=== PATIENT | female | born 1985 | race Caucasian/White ===

== ENCOUNTER 2023-06-28 16:58 | Emergency (ER) | payer BC, SELFPAY ==
[2023-06-28 17:09] VITALS: BP 128/68; PULSE 108; RESP 16; TEMP 37.1; O2SAT 100
--- NOTE | 2023-06-28 17:42 | ED.URI ---
HPI - URI/Sore Throat General Chief Complaint: Upper Respiratory Infection Stated Complaint: Sinus Pressure, Contractions Source: patient and RN notes reviewed Mode of arrival: ambulatory Limitations: no limitations History of Present Illness HPI Narrative: 38-year-old female presented for complaint sinus congestion and headache since yesterday. Endorses children with similar symptoms. Unable to take anything for symptoms due to . She also reports she has had intermittent contractions. Also states she feels they are [place] contractions and is not concerned. She denies vaginal bleeding. Reports normal movement. MD elicited complaint: cough Related Data Home Medications Medication Instructions Recorded Confirmed No Home Medications 06/28/23 06/28/23 Allergies Allergy/AdvReac Type Severity Reaction Status Date / Time No Known Allergies Allergy Verified 06/28/23 17:40 Review of Systems Review of Systems: CONSTITUTIONAL: Endorses malaise, chills, sweats, fever EYES: Denies visual changes, redness, or discharge ENT: Reports rhinorrhea, congestion, denies otalgia, sore throat CARDIOVASCULAR: Denies chest pain, palpitations, edema RESPIRATORY: Reports cough, post nasal drainage. Denies dyspnea GASTROINTESTINAL: Reports contractions Denies abdominal pain, nausea, vomiting, diarrhea MUSCULOSKELETAL: denies myalgia NEUROLOGIC: reports headache Exam Narrative: GENERAL: well-appearing, nontoxic no acute distress. EYES: PERRLA, conjunctivae clear ENT: Mucous membranes moist. TM pearly villanueva with dull light reflex bilaterally; no tragal tenderness. Oropharynx erythematous without lesions or exudate, no drooling, no hoarseness, no trismus, uvula midline. No tripod positioning, muffled voice, soft palate or pharyngeal wall bulging CHEST: Clear to auscultation, breath sounds equal. No wheezing, rhonchi, rales, or stridor. No respiratory distress, speaks in full sentences. HEART: Regular rate and rhythm. No murmur heard. ABD: gravid SKIN: Warm, dry, no rash. NEURO: Alert and oriented x3. PSYCH: tearful Course Course Emergency Course: Patient is aware of diagnosis, understands and agrees to treatment plan. Anticipatory guidance given. Patient agrees to follow-up as directed and is aware of reasons to seek care at the emergency department. Portions of this record may have been created with voice recognition software Level of Care: Express Care Visit Vital Signs Vital signs: Vital Signs Temperature 98.8 F 06/28/23 17:09 Pulse Rate 108 H 06/28/23 17:09 Respiratory Rate 16 06/28/23 17:09 Blood Pressure 128/68 06/28/23 17:09 Pulse Oximetry 100 06/28/23 17:09 Temperature 98.8 F 06/28/23 17:09 Pulse Rate 108 H 06/28/23 17:09 Respiratory Rate 16 06/28/23 17:09 Blood Pressure 128/68 06/28/23 17:09 Pulse Oximetry 100 06/28/23 17:09 reviewed MDM - URI/Sore Throat MDM Narrative Medical decision making narrative: Neg flu, covid, strep results reviewed with pt. Denies active contractions, reports normal movement. Advised supportive measures and signs/symptoms to go to the ER. Pt is appropriate for outpt treatment and f/u. Differential Diagnosis Differential diagnosis: Likely upper respiratory infection, sinusitis, viral infection, bronchitis, influenza and pharyngitis Lab Data Labs: Strep Screen Presumptive Negative *(Reference Range: Negative)* Discharge Plan Discharge Clinical Impression: Upper respiratory infection Patient Disposition: Home, Self-Care Condition: Stable Instructions: Antibiotic Form, Upper Respiratory Infection (ED) Additional Instructions: Flu negative Your rapid covid test was negative today. It may be too early to detect the virus, therefore we recommend retesting at home in 1-2 days Continue to follow general precautions: frequent handw
== END 2023-06-28 17:52 | disposition home or self-care (01) ==
PROVIDERS: Emergency Provider Nurse Practitioner Family
DX: J06.9 Acute upper respiratory infection, unspecified (principal); Z20.822 Contact with and (suspected) exposure to COVID-19
CPT/HCPCS: 87081; 87426; 87804; 87880; 99213; G0463

== ENCOUNTER 2024-04-27 10:30 | Emergency (ER) | payer BC, SELFPAY ==
--- NOTE | 2024-04-27 10:47 | ED.URI ---
HPI - URI/Sore Throat General Chief Complaint: Upper Respiratory Infection Stated Complaint: Sore Throat/Stomach Pain Time Seen by Provider: 04/27/24 10:50 Source: patient Mode of arrival: ambulatory Limitations: no limitations History of Present Illness HPI Narrative: Malena is a 39-year-old female patient presenting to the clinic today with complaints of sore throat and abdominal discomfort this started last night. Reports that her other daughter tested positive for strep further this week. Mother is currently taking amoxicillin 875 twice a day for mastitis. MD elicited complaint: sore throat and nasal congestion Related Data Home Medications Medication Instructions Recorded Confirmed amoxicillin 875 mg tablet 875 mg PO DIRECTED 04/27/24 04/27/24 dicloxacillin 500 mg capsule 500 mg PO DIRECTED 04/27/24 04/27/24 Allergies Allergy/AdvReac Type Severity Reaction Status Date / Time No Known Allergies Allergy Verified 04/27/24 10:50 Review of Systems Review of Systems: Pertinent positives per HPI. Patient denies any fever, chills, rash, headache, visual changes, dizziness, cough, shortness of breath, chest pain, palpitations, nausea, vomiting, diarrhea, constipation, abdominal pain, or any urinary issues. PMFSH Comments At the time of my signature, I reviewed and agree with the nursing past medical, surgical, social, and family history. There is no relevant family history pertinent to the patient complaint. Exam Narrative: General: Well-developed, well nourished, in no apparent distress Head: Normocephalic, atraumatic Eyes: Pupils equally round and reactive to light bilaterally, EOM intact, sclera and conjunctive clear, no discharge, lids normal Ears: TMs intact and clear, ear canals clear, no drainage, grossly hearing normal. Nose: Nares patent, no discharge, no inflammation, no sinus tenderness. Mouth: Oral pharynx red without lesions or masses, good dentition, MMM. Neck: Supple, trachea midline, no enlargement of anterior or posterior cervical nodes, no thyroid masses or goiter palpable. Cardio: Regular rate and rhythm, s1 and s2 normal, no murmur appreciated. Resp: Clear to auscultation bilaterally, no rhonchi, rales, wheezing or rubs Course Course Emergency Course: Portions of this record may have been created with voice recognition software. Level of Care: Express Care Visit Vital Signs Vital signs: Vital signs reviewed [facility] - URI/Sore Throat MDM Narrative Medical decision making narrative: At the time of visit patient is resting comfortably on the exam table. Patient appears to be nontoxic. Labs: Strep test was obtained and was negative in the clinic today Plan: Continue taking your amoxicillin as prescribed for mastitis. Supportive measures were discussed with the patient and they voiced understanding discharge instructions and agrees to treatment plan. Return precautions reviewed Differential Diagnosis Differential diagnosis: Likely upper respiratory infection, otitis media, sinusitis, viral infection, bronchitis, influenza, pharyngitis and other (COVID) Discharge Plan Discharge Clinical Impression: Pharyngitis Qualifiers: Pharyngitis/tonsillitis etiology: unspecified etiology Qualified Code(s): J02.9 - Acute pharyngitis, unspecified Patient Disposition: Home, Self-Care Condition: Stable Instructions: Antibiotic Form, Pharyngitis (ED) Additional Instructions: Strep test is negative in the clinic today. Continue your amoxicillin as prescribed Increase fluids and stay well hydrated Tylenol/motrin for pain/fever Flonase and OTC antihistamines as directed Vicks vapor rub to open sinuses Sinus rinses for congestion Cepacol spray, cough drops, throat lozenges, warm tea with honey/lemon, gargle salt water to soothe throat BRAT diet for diarrhea Clear liquids x 24 hours then advance as tolerated for nausea/vomiting Go to the ED if you develop a worsening in your condition- high fever not controlled by Tylenol or Motrin, dehydration, weakness, lethargy, shortness of breath, or chest pain. Follow up with your PCP in 3-5 days if symptoms persist. Prescriptions: No Action dicloxacillin 500 mg capsule 500 mg PO DIRECTED amoxicillin 875 mg tablet 875 mg PO DIRECTED Follow-up/Referrals: PHYSICIAN,MARKET INVESTIGATOR [Primary Care Provider] - Time of Disposition: 11:03 Quality NIHSS Nursing Documentation ED NIHSS nursing documentation: reviewed/agree
[2024-04-27 10:48] VITALS: BP 120/67; PULSE 85; RESP 16; TEMP 36.4; O2SAT 99
[2024-04-27 10:58] LABS: EDSTREPNEGPOS1 Negative (Negative)
== END 2024-04-27 11:10 | disposition home or self-care (01) ==
PROVIDERS: Emergency Provider Nurse Practitioner Family
DX: J02.9 Acute pharyngitis, unspecified (principal)
CPT/HCPCS: 87081; 87880; 99213; G0463

== ENCOUNTER 2024-06-22 10:27 | Emergency (ER) | payer BC, SELFPAY ==
[2024-06-22 11:10] VITALS: BP 105/71; PULSE 60; RESP 16; TEMP 36.3; O2SAT 100
--- NOTE | 2024-06-22 11:39 | ED_ITS ---
HPI - URI/Sore Throat General Chief Complaint: Urogenital-Female Stated Complaint: Uti Symptoms/Upper Respiratory Symptoms Source: patient and RN notes reviewed Mode of arrival: ambulatory Limitations: no limitations History of Present Illness MD elicited complaint: cough and sore throat Related Data Home Medications ?Medication ?Instructions ?Recorded ?Confirmed ?Last Taken ?Type progesterone micronized 200 mg mg 06/22/24 Unknown History capsule Allergies Allergy/AdvReac Type Severity Reaction Status Date / Time No Known Allergies Allergy Verified 06/22/24 11:33 Review of Systems Review of Systems: CONSTITUTIONAL: Denies malaise, chills, sweats, or fever. EYES: Denies visual changes, redness, or discharge. ENT: Reports rhinorrhea, congestion, sinus pain, otalgia and sore throat. CARDIOVASCULAR: Denies chest pain, palpitations, or edema. RESPIRATORY: Reports cough. Denies dyspnea. GASTROINTESTINAL: Denies abdominal pain, nausea, vomiting, diarrhea SKIN: Denies rash or itching. MUSCULOSKELETAL: Denies myalgia. NEUROLOGIC: Denies headache. All systems reviewed & are unremarkable except as noted in HPI and below PMFSH Comments At time of signature, agree with nursing past medical, surgical, social and family history. There is no relevant family history pertinent to the presenting complaint Exam Narrative: GENERAL: Well-appearing, well-nourished, and in no acute distress. HEAD: Normocephalic EYES: PERRLA, conjunctivae clear ENT: Nares clear, turbinates edematous and erythematous, clear discharge. Mucous membranes moist. TM pearly villanueva with dull light reflex bilaterally; no tragal tenderness. Oropharynx not erythematous without lesions. Tonsils not enlarged and without exudate, no drooling, no hoarseness, no trismus, uvula midline. NECK: Supple. No lymphadenopathy CHEST: Clear to auscultation, breath sounds equal. No wheezing, rhonchi, rales, or stridor. No respiratory distress, speaks in full sentences. HEART: Regular rate and rhythm. No murmur heard. SKIN: Warm, dry, no rash. NEURO: Alert and oriented x3. PSYCH: Normal mood and affect Course Course Emergency Course: Patient is aware of diagnosis, understands and agrees to treatment plan. Anticipatory guidance given. Patient agrees to follow-up as directed and is aware of reasons to seek care at the emergency department. Portions of this record may have been created with voice recognition software Level of Care: Express Care Visit Vital Signs Vital signs: Vital Signs Temperature 97.3 F L 06/22/24 11:10 Pulse Rate 60 06/22/24 11:10 Respiratory Rate 16 06/22/24 11:10 Blood Pressure 105/71 06/22/24 11:10 Pulse Oximetry 100 06/22/24 11:10 Temperature 97.3 F L 06/22/24 11:10 Pulse Rate 60 06/22/24 11:10 Respiratory Rate 16 06/22/24 11:10 Blood Pressure 105/71 06/22/24 11:10 Pulse Oximetry 100 06/22/24 11:10 Reviewed. MDM - URI/Sore Throat MDM Narrative Medical decision making narrative: Differential diagnosis considered: Serra virus, strep pharyngitis, allergic rhinitis, upper respiratory tract infection, sinusitis, rhinosinusitis, nasopharyngitis. viral pharyngitis, otitis media, otitis externa, pneumonia, bronchitis, viral cough syndrome, viral syndrome, and influenza. Exam findings show no acute concerns or changes; patient is non-toxic appearing and is in no distress. Patient is appropriate for outpatient treatment and follow-up. Lab Data Attestation: I reviewed the patient's lab results. Critical Care Time Critical Care Time Critical Care Time: No Discharge Plan Discharge Patient Language: Slovak Prescriptions: No Action progesterone micronized 200 mg capsule Follow-up/Referrals: PHYSICIAN,WAITER/WAITRESS BUFFET [Primary Care Provider] -
--- NOTE | 2024-06-22 11:48 | ED_ITS ---
HPI - Female Genitourinary General Chief complaint: Urogenital-Female Stated complaint: Uti Symptoms/Upper Respiratory Symptoms Time Seen by Provider: 06/22/24 11:39 Source: patient and RN notes reviewed Mode of arrival: ambulatory Limitations: no limitations History of Present Illness HPI Narrative: 39 year old female presents with concern for urinary tract infection. She reports since yesterday she has been having dysuria, frequency, urgency, suprapubic pressure. She denies fever, back aches, nausea, vomiting, chills, sweats. MD elicited complaint: UTI Related Data Home Medications ?Medication ?Instructions ?Recorded ?Confirmed ?Last Taken ?Type progesterone micronized 200 mg mg 06/22/24 Unknown History capsule Allergies Allergy/AdvReac Type Severity Reaction Status Date / Time No Known Allergies Allergy Verified 06/22/24 11:33 Review of Systems Review of Systems: CONSTITUTIONAL: Denies malaise, chills, sweats, or fever. CARDIOVASCULAR: Denies chest pain, palpitations, or edema. RESPIRATORY: Denies cough or dyspnea. GASTROINTESTINAL: Denies abdominal pain, nausea, vomiting, diarrhea GENITOURINARY: Reports dysuria, frequency, urgency, suprapubic pressure. Denies flank pain or hematuria. SKIN: Denies rash or itching. MUSCULOSKELETAL: Denies back pain or myalgia. All systems reviewed & are unremarkable except as noted in HPI and below PMFSH Comments At time of signature, agree with nursing past medical, surgical, social and family history. There is no relevant family history pertinent to the presenting complaint Exam Narrative: GENERAL: Well-appearing, well-nourished, and in no acute distress. HEAD: Normocephalic. EYES: PERRLA, conjunctivae clear. NECK: Supple. No lymphadenopathy CHEST: Clear to auscultation. No respiratory distress. HEART: Regular rate and rhythm. ABDOMEN: Soft, nontender upon palpation, nondistended, normal active bowel sounds, no palpable or pulsatile masses, no guarding. No CVA tenderness SKIN: Warm, dry, no rash. NEURO: Alert and oriented x3. PSYCH: Normal mood and affect Course Course Emergency Course: Patient is aware of diagnosis, understands and agrees to treatment plan. Anticipatory guidance given. Patient agrees to follow-up as directed and is aware of reasons to seek care at the emergency department. Portions of this record may have been created with voice recognition software Level of Care: Express Care Visit Vital Signs Vital signs: Vital Signs Temperature 97.3 F L 06/22/24 11:10 Pulse Rate 60 06/22/24 11:10 Respiratory Rate 16 06/22/24 11:10 Blood Pressure 105/71 06/22/24 11:10 Pulse Oximetry 100 06/22/24 11:10 Temperature 97.3 F L 06/22/24 11:10 Pulse Rate 60 06/22/24 11:10 Respiratory Rate 16 06/22/24 11:10 Blood Pressure 105/71 06/22/24 11:10 Pulse Oximetry 100 06/22/24 11:10 Reviewed. MDM - Female Genitourinary MDM Narrative Medical decision making narrative: Exam findings and UA show no acute concerns or changes; patient is non-toxic appearing and is in no distress. Patient is appropriate for outpatient treatment and follow-up. Differential Diagnosis Differential diagnosis: Likely urinary tract infection and cystitis Critical Care Time Critical Care Time Critical Care Time: No Discharge Plan Discharge Clinical Impression: Symptoms of urinary tract infection Patient Disposition: Home, Self-Care Condition: Stable Instructions: Antibiotic Form, Urinary Tract Infection in Women (ED) Additional Instructions: We will send a urine culture to the lab; if the culture identifies an organism that the prescribed antibiotic will not treat, you will receive a phone call from an urgent care staff member and an appropriate antibiotic will be prescribed. -Your symptoms should begin to improve within a day of starting antibiotics. But you should finish all the antibiotic pills you get. Otherwise your infection might come back. -Also recommend: increase water intake. Tylenol/ibuprofen as needed for pain or fever -Follow-up with your primary care provider for urine recheck or seek ER visit if condition worsens with high fever, nausea, vomiting and severe back pain. Patient Language: Cook Islander Prescriptions: New amoxicillin-pot clavulanate 875-125 mg tablet 1 tablet PO Q12H 7 Days Qty: 14 0RF No Action progesterone micronized 200 mg capsule Follow-up/Referrals: PHYSICIAN,WIND TURBINE MECHANICAL ENGINEER [Primary Care Provider] - Time of Disposition: 11:50
[2024-06-22 11:59] LABS: EDUAAPPEAR Clear; EDUABILI Negative (Negative); EDUABLOOD Negative (Negative); EDUACOLOR1 Yellow; EDUAGLUCOSE Negative (Negative); EDUAKETONE Negative (Negative); EDUALEUKO Trace (Negative); EDUANITRATE Negative (Negative); EDUAPH 8.5; EDUAPROTEIN Negative (Negative); EDUASPGRAVITY 1.015; EDUAUROBILI 0.2
== END 2024-06-22 12:10 | disposition home or self-care (01) ==
PROVIDERS: Emergency Provider Nurse Practitioner
DX: R30.0 Dysuria (principal); R35.0 Frequency of micturition; R39.15 Urgency of urination; R10.30 Lower abdominal pain, unspecified
CPT/HCPCS: 81003; 87086; 99213; G0463

== ENCOUNTER 2025-01-03 16:14 | Outpatient (CLI) | payer BC, SELFPAY ==
--- NOTE | ~2025-01-03 | XR_ITS ---
HISTORY: resulting from trauma COMPARISON: None TECHNIQUE: 3 views of the cervical spine were performed. FINDINGS: Visualization of the cervical spine to the superior endplate of T3. Straightening of the normal curvature of the cervical spine is identified. No prevertebral soft tissue swelling is appreciated. No acute compression fracture is noted. The dens is equidistant between the pillars, without asymmetry. Air column within the trachea is midline. The visualized portions of the bilateral upper lung wu are unremarkable. IMPRESSION: Straightening of the normal curvature of the cervical spine, likely muscular in origin. No acute compression fracture. Reviewed, dictated and finalized at location A.
--- OUTSIDE RECORDS SUMMARY | 2025-01-03 16:30 | XMS_ITS | Clinical Summary ---
Author Organization [facility] Address [address] [place] [address] Care Team Providers Care Letterpress Printing Machinist Name Role Phone Salima Magaña MD Primary Care Provider + Allergies Active Allergy Reactions Criticality Noted Date Comments Nickel Rash Low 09/29/2024 Medications Szezyhoa-Onc-Lc -FA ( OR) Take 1 tablet by mouth daily. Active Ergocalciferol (VITAMIN D OR) Take 1 capsule by mouth daily. Active ZINC OR Use as directed 1 tablet in the mouth or throat daily. Active progesterone (PROMETRIUM) 200 MG capsuleIndicati ons:PMDD (premenstrual dysphoric disorder) Take 1 capsule (200 mg total) by mouth daily. Take for 10 days day of second half of your menstrual cycle. 90 capsule 3 5 12/29/19 26 Active Active Problems Problem Noted Date Diagnosed Date Urge incontinence 09/29/2024 Overview (09/29/2024): She has been trying to do physical therapy using an luis [facility] through her phone. She is interested in other options. Assessment & Plan (09/29/2024 2:40 PM CDT): Will refer to pelvic floor therapy locally. Palpitations 10/19/2019 Supraventricular tachycardia (HHS/HCC) 0 Overview (09/29/2024): Testing in 2020. Saw financial aid officer. At the time of symptoms was under stress and had multiple days of symptoms. Had holter and EKG. HR can be in the 190s when working out. Systolic murmur 10/19/2019 Allergic rhinitis 09/01/2014 Encounters Date Type Department Care Team Description 01/02/2025 MyChart Message Enc [address] [place] [address] Salima Magaña MD Injury 12/24/2024 2:10 PM CDT Office Visit [address] [place] [address] Salima Magaña MD Hormone Levels (Wants to discuss progesterone, fertility issues. ) 12/24/2024 MyChart Message Enc [address] [place] [address] Salima Magaña MD Progesterone 12/24/2024 Travel 11/29/2024 8:00 AM CDT Office Visit [facility] [address] [place] [id number] Salima Magaña MD Weedon, Meaghan B, PT Urinary Concern 11/29/2024 Travel 11/03/2024 1:45 PM CDT Office Visit [facility] [address] [place] [id number] Salima Magaña MD Weedon, Meaghan B, PT Urinary Incontinence 11/03/2024 Travel 11/02/2024 Telephone [facility] [address] [facility] [address] [place] [address] Salima Magaña MD Results 10/20/2024 2:15 PM CDT Office Visit [facility] [address] [place] [address] Salima Magaña MD Weedon, Meaghan B, PT Urinary Incontinence 10/20/2024 Travel from Last 3 Months Immunizations Immunization Administration Dates Next Due Abrysvo Respiratory Syncytia l Virus (RSV) 0.5 mL, PF 06/17/2023 Influenza (Generic) 02/25/2024 Influenza Adult (Generic) 04/01/2023,06/14/2020, 06/01/2014 Tdap (Generic) 05/27/2023,06/14/2020,12/01/2017 Family History Medical History Relation Comments No Known Problems Brother 1 No Known Problems Brother 2 None Brother 3 HNPP No Known Problems Daughter 1 No Known Problems Daughter 2 None Daughter 3 Lactose Intolera nce? No Known Problems Daughter 4 None Daughter 5 Milk Protein All ergy Hypertension Father Hypertension Mother Miscarriages / Stillbirths Mother None Sister Celiac Retardation/Learning Difficulties Sister None Son 1 ADHD No Known Problems Son 2 Relation Status Comments Brother 1 Alive Brother 2 Alive Brother 3 Alive Daughter 1 Alive Daughter 2 Alive Daughter 3 Alive Daughter 4 Alive Daughter 5 Alive Father Mother Alive Sister Alive Son 1 Alive Son 2 Alive Social History Tobacco Use Types Packs/Day Years Used Date Smoking Tobacco: Never Passive Smoke Exposure: Never Smokeless Tobacco: Never Tobacco Cessation:Counseling Given: No Alcohol Use Standard Drinks/Week Comments Yes 2.7 (1 standard drink = 0.6 oz p ure alcohol) occasional/social PHQ-2 Answer Date Recorded Patient Health Questionnaire-2 Score 2 09/29/2024 Comments No Sex and Gender Information Value Date Recorded Sex Assigned at Female 08/30/2024 10:23 AM CDT Legal Sex Female 1:12 PM CDT Gender Identity Female 08/30/2024 10:23 AM CDT Sexual Orientation Straight 08/30/2024 10 :23 AM CDT Last Filed Vital Signs Vital Sign Reading Time Taken Comments Blood Pressure 101/59 12/24/2024 2:13 PM CDT Pulse 89 12/24/2024 2:13 PM CDT Temperature 36.8 C (98.3 F) 12/24/2024 2:13 PM CDT Respiratory Rate - - Oxygen Saturation 97% 12/24/2024 2:13 PM CDT Inhaled Oxygen Concentration - - Weight 73.3 kg (161 lb 9.6 oz) 12/24/2024 2:13 P M CDT Height 170.2 cm (5' 7) 12/24/2024 2:13 PM CDT Body Mass Index 25.31 12/24/2024 2:13 PM CDT Plan of Treatment Upcoming Encounters Date Type Department Care Team (Late st Contact Info) Description 01/14/2025 8:45 AM CDT Office Visit [facility] [address] [place] [address] Nena Avila, PT [address] [facility] [place] [address] 09/30/2025 10:30 AM CDT Office Visit [facility] Family Medicine - [place] [address] [place], [place] [id number] Salima Magaña MD [address] [place], [place] [id number] Health Maintenance Due Date Last Done Comments Cervical Cancer Screening Pa p Smear (Age 30 to 64) Every 3 Years 1986 Hepatitis C 2004 Hepatitis B Vaccines (1 of 3 - 19+ 3-dose series) 2005 HPV Vaccines (1 - 3-dose SCD M series) 2013 Cervical Cancer Screening Pa p with HPV Testing (Age 30 to 64) Every 5 Years 2016 Cervical Cancer Screening wi th HPV 2016 COVID-19 Vaccine (2023-2 5 season) 2024 Annual Physical 09/29/2025 09/29/2024 DTaP, Tdap and Td Vaccines ( 4 - Td or Tdap) 05/27/2033 05/27/2023, 06/14/2020, 12/01/2017 PHQ-2 (Physician [employer]) Completed 09/29/2024 Meningococcal B Vaccine Aged Out No l onger eligible based on patient's age to complete this topic Meningococcal Vaccine Aged Out No trish catarina eligible based on patient's age to complete this topic Pneumococcal Vaccine: Pediatrics (0 to 5 Years) and At-Risk Patients (6 to 49 Years) Aged Out No longer eligible b ased on patient's age to complete this topic RSV Immunizations Under 20 Months Aged Out No longer eligible b ased on patient's age to complete this topic Insurance [facility] Care Teams Letterpress Printing Machinist Relationship Specialty Start Date End Date Salima Magaña MD [address] [facility] [address] [place] [id number] PCP - General FAMILY PRACTICE 08/17/24
--- OUTSIDE RECORDS SUMMARY | 2025-01-03 16:30 | XMS_ITS | Clinical Summary ---
Author Organization [facility] Address [address] [place] [address] Care Team Providers Care Turbine Technician Name Role Phone Dirk SAXENA MD, Chintan Ferrer Primary Care Provider [phone] Source Comments [facility],non-owned Affiliates and Associated Physician Practices is amultiple site organization consisting of ambulatory clinics and hospital sitesin [place], [place], [place] and [place]. This disclosure is being madepursuant to the Care Everywhere program and may not contain all information available regarding this patient. Last updated 18.[facility] Allergies No known active allergies Medications * Be aware that medications may not be up to date on this document. Alwaysverify current medications with the patient. Acetaminophen (TYLENOL EXTRA STRENGTH PO) Take 1 Cap by mouth once daily as needed Active HYDROcodone-kenneth taminophen 7.5-325 MG/15ML solution Take 15 mL by mouth every 4 hours as needed for Pain 473 mL 11/25/2016 Active ondansetron, disintegrating, (ZOFRAN ODT) 4 MG tablet Take 1 Tab by mouth every 6 hours as needed for Nausea/Vomiti ng Allow tablet to dissolve on the tongue 20 Tab 11/25/2016 Active Immunizations Immunization Administration Dates Next Due INFLUENZA VACCINE, TRIV. 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 Gender Identity Not on file Sexual Orientation Not on file Last Filed Vital Signs Vital Sign Reading Time Taken Comments Blood Pressure 111/80 11/25/2016 9:15 AM CDT Pulse 48 11/25/2016 9:15 AM CDT Temperature 36.3 C (97.4 F) 11/25/2016 7:52 AM CDT Respiratory Rate 14 11/25/2016 7:52 AM CDT Oxygen Saturation 94% 11/25/2016 9:15 AM CDT Inhaled Oxygen Concentration - - Weight 69.9 kg (154 lb) 11/25/2016 5:32 AM CDT Height 170.2 cm (5' 7) 11/25/2016 5:32 AM CDT Body Mass Index 24.12 11/25/2016 5:32 AM CDT Plan of Treatment Health Maintenance Due Date Last Done Comments HIV SCREENING 2001 HEPATITIS C SCREENING 04/22/2004 DTAP/TDAP/TD VACCINES (1 - Tdap) 2005 HEPATITIS B VACCINE (1 of 3 - 19+ 3-dose series) 2005 PAP SMEAR 2007 HPV VACCINE (1 - 3-dose SCDM series) 2013 COVID-19 VACCINE ( - season) 2024 DEPRESSION SCREENING 05/26/2024 INFLUENZA VACCINE (#1) 2025 , 04/01/2023, 06/14/2020, Additional history exists ZOSTER VACCINE (1 of 2) 2036 HIB VACCINE Aged Out No longer eligi ble based on patient's age to complete this topic MENINGOCOCCAL (Group B) VACCINE SHARED DECISION-MAKING Aged Out No longer eligible based on patient's age to complete this topic MENINGOCOCCAL GROUPS A/C/Y/W VACCINE Aged Out No longer eligible based on patient's age to complete this topic PNEUMOCOCCAL VACCINE Aged Out No long er eligible based on patient's age to complete this topic Insurance ANTHEM Care Teams Turbine Technician Relationship Specialty Start [place] [address] [address] [place] [address] PCP - General Family Medicine 11/21/16
--- OUTSIDE RECORDS SUMMARY | 2025-01-03 16:30 | XMS_ITS | Clinical Summary ---
Author Organization [facility] Address [address] [place] [id number] Care Team Providers Care Flame Channeler Name Role Phone No, Physician Primary Care Provider [phone] Social History Tobacco Use Types Packs/Day Years Used Date Smoking Tobacco: Never Assessed Personal Safety Answer Date Recorded Getting School Help Needed Not on file 07/26 Comments Unknown Sex and Gender Information Value Date Recorded Sex Assigned at Not on file Legal Sex Female 10:50 AM CDT Gender Identity Not on file Sexual Orientation Not on file Plan of Treatment Not on file Insurance [employer] [place] [employer] [place] Care Teams Flame Channeler Relationship Specialty Start Date End Date No, Physician PCP - General 04/05/20
--- OUTSIDE RECORDS SUMMARY | 2025-01-03 16:30 | XMS_ITS | Encounter Summary ---
Author Organization [facility] Address [address] [place] [id number] Care Team Providers Care Electrician Deck Name Role Phone Salima Magaña MD Primary Care Provider + Reason for Visit * Reason Onset Date Comments Follow Up Call 01/02/2025 Encounter Details Date Type Department Care Team (Late st Contact Info) Description 01/02/2025 OpenLabel Message Enc [facility] Family Medicine - [place] [address] [place] [phone] Salima Magaña MD [address] [place] [phone] Injury Social History Tobacco Use Types Packs/Day Years Used Date Smoking Tobacco: Never Passive Smoke Exposure: Never Smokeless Tobacco: Never Alcohol Use Standard Drinks/Week Comments Yes 2.7 [...] Orientation Straight 08/30/2024 10 :23 AM CDT documented as of this encounter Progress Notes * Cheryl Echeverria LPN - 01/03/2025 4:12 PM CDT Just forwarding to make you aware of the situation. * Irma Madera - 01/03/2025 3:36 PM CDT Patient called back to advise that she has seen the chiropractor and that at this time she is beingsent for imaging, no need for muscle relaxer and she will call back for an appointment after the imaging is completed. The images are being done at [facility] today, her chiropractor wants to check for any fractures. The patient will ask [place] to Push the images to [facility] system. * Cheryl Echeverria LPN - 01/03/2025 2:08 PM CDT I spoke with Malena and she is on her way to the chiropractor right now. She is going to call backafter and let us know an update and if she thinks that she needs an appointment. * Salima Magaña MD - 01/03/2025 12:22 PM CDT Cheryl-please call Malena to see if she has an update. We do not receive messages over the weekend so she has likely already seen the chiropractor/PT today. I am happy to arrange to see her in the clinic and consider a muscle relaxant and maybe some x-rays if they were not able to help her with PT. * Amber Manning MA - 01/03/2025 11:14 AM CDT Do you think she should be seen here and order a xray? documented in this encounter Plan of Treatment Upcoming Encounters Date Type Department Care Team (Late st Contact Info) Description 01/14/2025 8:45 AM CDT Office Visit [facility] [address] [place] [address] Nena Avila, PT [address] [facility] [address] 09/30/2025 10:30 AM CDT Office Visit [facility] Family Medicine - [place] [address] [place], [place] [phone] Salima Magaña MD [address] [place], [place] [id number] documented as of this encounter Visit Diagnoses Not on filedocumented in this encounter Additional Health Concerns Assessment Noted Time PHQ-9 Depression Total Score: 5 09/30/19 11:08 AM CDT documented as of this encounter Care Teams Electrician Deck Relationship Specialty Start Date End Date Salima Magaña MD [address] [place], [place] [id number] PCP - General FAMILY PRACTICE 08/17/24 documented as of this encounter
== END 2025-01-03 16:15 | disposition home or self-care (01) ==
PROVIDERS: PCP Student in an Organized Health Care Education/Training Program
DX: M40.202 Unspecified kyphosis, cervical region (principal)
CPT/HCPCS: 72040

== ENCOUNTER 2025-05-17 09:35 | Emergency (ER) | payer BC, SELFPAY ==
[2025-05-17 09:44] VITALS: BP 105/53; PULSE 69; RESP 16; TEMP 36.4; O2SAT 100
--- NOTE | 2025-05-17 10:05 | ED_ITS ---
HPI - URI/Sore Throat General Chief Complaint: Upper Respiratory Infection Stated Complaint: SINUS CONGESTION/PRESSURE Time Seen by Provider: 05/17/25 09:54 Source: patient and RN notes reviewed Mode of arrival: ambulatory Limitations: no limitations History of Present Illness HPI Narrative: 40-year-old female patient complains of a 10 day history of body aches, cough, fatigue, sinus pressure. States symptoms significantly improved 4 days ago, then worsened again 3 days ago, significantly in the left frontal and maxillary sinuses. Denies fever or shortness of breath. She is currently 18 weeks . She has tried Tylenol, Sudafed, and Zyrtec with some improvement. Related Data Home Medications ?Medication ?Instructions ?Recorded ?Confirmed ?Last Taken ?Type progesterone micronized 200 mg mg 06/22/24 Unknown Hi story capsule Allergies Allergy/AdvReac Type Severity Reaction Status Date / Time No Known Allergies Allergy Verified 05/17/25 09:40 [facility] Comments At time of signature, I have reviewed and agree with nursing past medical, surgical, social and family history unless otherwise noted. Please see nursing chart for further information. There is no relevant family history pertinent to the presenting complaint Exam Narrative: GENERAL: Mildly ill-appearing, well-nourished, and in no acute distress. HEAD: Normocephalic, atraumatic. EYES: EOMI. No redness or drainage. Conjunctivae normal. ENT: Mucous membranes pink and moist. Nares congested with rhinorrhea. Left frontal and maxillary sinus tenderness. TMs normal bilaterally. Throat normal. Uvula midline. NECK: Normal AROM. Supple. No lymphadenopathy. CHEST: No respiratory distress. Clear to auscultation. HEART: Regular rate and rhythm. No murmur appreciated. EXTREMITIES: Normal range of motion. No edema. SKIN: Warm, dry, no rash. Capillary refill normal. Normal skin turgor. NEURO: No focal deficits. Alert and oriented x3. Gait steady. PSYCH: Normal affect. No signs of depression or anxiety. Course Course Level of Care: Express Care Visit Vital Signs Vital signs: Vital Signs Temperature 97.6 F 05/17/25 09:44 Pulse Rate 69 05/17/25 09:44 Respiratory Rate 16 05/17/25 09:44 Blood Pressure 105/53 L 05/17/25 09:44 Pulse Oximetry 100 05/17/25 09:44 Temperature 97.6 F 05/17/25 09:44 Pulse Rate 69 05/17/25 09:44 Respiratory Rate 16 05/17/25 09:44 Blood Pressure 105/53 L 05/17/25 09:44 Pulse Oximetry 100 05/17/25 09:44 Reviewed MDM MDM Narrative Medical decision making narrative: 40-year-old female patient complains of a 10 day history of body aches, cough, fatigue, sinus pressure. States symptoms significantly improved 4 days ago, then worsened again 3 days ago, significantly in the left frontal and maxillary sinuses. Denies fever or shortness of breath. She is currently 18 weeks . She has tried Tylenol, Sudafed, and Zyrtec with some improvement. Upon exam, patient is mildly ill appearing with nasal congestion, rhinorrhea, and tender left frontal and maxillary sinuses. Due to her symptoms of double sickening induration of illness, she will be treated with Augmentin for her bacterial sinusitis. Also recommend starting an intranasal steroid such as Fl onase to help with pressure and inflammation. Patient agrees with plan. Vital signs stable. Anticipatory guidance given. Differential Diagnosis Differential Diagnosis: URI, sinusitis, bronchitis, pneumonia Critical Care Time Critical Care Time Critical Care Time: No Discharge Plan Discharge Clinical Impression: Sinusitis Qualifiers: Sinusitis location: unspecified location Chronicity: acute Recurrence: non- recurrent Qualified Code(s): J01.90 - Acute sinusitis, unspecified Patient Disposition: Home Condition: Stable Instructions: Antibiotic Form, Sinusitis (ED) Additional Instructions: Please take the Augmentin as prescribed until gone. You may continue [id number] medication as needed. Consider starting an intranasal steroid such as Flonase. Follow-up with your PCP in 2-3 days if symptoms are not improving. Patient Language: Sammarinese Prescriptions: New amoxicillin-pot clavulanate 875-125 mg tablet 1 tablet PO Q12H 7 Days Qty: 14 0RF No Action progesterone micronized 200 mg capsule Follow-up/Referrals: Gómez,Salima Ervin MD [Primary Care Provider, Unknown] Time of Disposition: 10:07
== END 2025-05-17 10:10 | disposition home or self-care (01) ==
PROVIDERS: Emergency Provider Nurse Practitioner; PCP Student in an Organized Health Care Education/Training Program
DX: O99.512 Diseases of the respiratory system complicating pregnancy, second trimester (principal); J01.90 Acute sinusitis, unspecified; Z3A.18 18 weeks gestation of pregnancy
CPT/HCPCS: 99213; G0463